=== PATIENT | male | born 2005 | race Asian ===

== ENCOUNTER 2025-03-19 13:15 | Emergency (ER) | payer BC ==
[~2025-03-19] VITALS: Ht 172.7 cm; Wt 66.0 kg
[2025-03-19 13:21] VITALS: O2SAT 100
[2025-03-19 14:37] LABS: BASOPHILS % 0.2 % (0.0-2.0); EOSINOPHILS % 1.2 % (0.0-5.0); HEMATOCRIT. 43.9 % (42.0-52.0); HEMOGLOBIN. 14.9 g/dL (14.0-18.0); LYMPHOCYTES % 20.1 % (20.0-50.0); MEAN PLATELET VOLUME 7.4 fl (7.4-10.4); MONOCYTES % 7.2 % (2.0-8.0); NEUTROPHILS % 71.3 % (40.0-76.0); PLATELET 217 x1000/uL (130-400); RED BLOOD CELL COUNT 4.96 mill/uL (4.7-6.1); RED CELL DISTRIBUTION WIDTH 13.4 % (11.6-14.6)
[2025-03-19 14:54] LABS: TROPONIN I HIGH SENSITIVITY < 4 ng/L (3.0-53)
[2025-03-19 14:55] LABS: CREATININE 1.0 mg/dL (0.6-1.3); UREA NITROGEN BLOOD 12 mg/dL (9-23)
[2025-03-19 14:56] LABS: ETHANOL BLOOD < 10 mg/dL (<10)
[2025-03-19 14:57] LABS: ASPARTATE AMINOTRANSFERASE 15 IU/L (<34); BILIRUBIN DIRECT 0.3 mg/dL (<=3.0)
[2025-03-19 14:58] LABS: BILIRUBIN TOTAL 0.9 mg/dL (0.1-1.0); PROTEIN TOTAL 6.6 g/dL (6.0-8.3)
[2025-03-19 15:52] VITALS: BP 124/84; PULSE 71; RESP 16; TEMP 37; O2SAT 100
== END 2025-03-19 15:53 | disposition home or self-care (01) ==
LOC: ER 13:15
DX: R55 Syncope and collapse (principal)
CPT/HCPCS: 36415; 71045; 80048; 80076; 80320; 82962; 84484; 85025; 93005; 99285; G0480

== ENCOUNTER → 2025-04-27 | Outpatient (CLI) | payer BC | END | disposition home or self-care (01) | LOC: MRI 08:32 | PROVIDERS: ATTEND Internal Medicine Nephrology | DX: S82.001A Unspecified fracture of right patella, initial encounter for closed fracture (principal); S83.011A Lateral subluxation of right patella, initial encounter; S86.811A Strain of other muscle(s) and tendon(s) at lower leg level, right leg, initial encounter; M24.461 Recurrent dislocation, right knee; M25.461 Effusion, right knee; X58.XXXA Exposure to other specified factors, initial encounter; Y93.89 Activity, other specified; Y92.89 Other specified places as the place of occurrence of the external cause; Y99.8 Other external cause status | CPT/HCPCS: 73721 ==